=== PATIENT | female | born 1970 ===

== ENCOUNTER 2021-10-22 07:12 | Day surgery (SDC) | payer OTHER ==
[~2021-10-22] VITALS: Ht 162.6 cm; Wt 80.1 kg
[2021-10-22 07:41] VITALS: BP 137/76; PULSE 73; TEMP 97.3
[2021-10-22] MEDS ORDERED: PREVACID 30MG30 M1 PO (07:46)
[2021-10-22] MEDS ORDERED: CYANOCOBAL1000 MCG/1 SQ (07:46)
[2021-10-22 08:45] VITALS: BP 137/76; PULSE 69; TEMP 97
--- NOTE | 2021-10-22 08:52 | NUR ---
0845 - PT arrives from procedure w/ Vandana RN; PT was settled. Verbal report then obtained. PT has warm blankets and non-slip socks on. PT denies pain and nausea. Vitals obtained. PT provided w/ a warm muffin and ice water per request. PT oriented to room and call kern, within reach. Visitor remains present.
[2021-10-22 09:00] VITALS: BP 111/72; PULSE 68
--- NOTE | 2021-10-22 09:01 | NUR ---
0900 - VSS. IV disconnected and PT ambualted to bathroom independently. Then back to bay #8; where she is changing into her personal clothes. Call kern remains within reach if needed.
[2021-10-22 09:15] VITALS: BP 120/65; PULSE 65
--- NOTE | 2021-10-22 09:19 | NUR ---
0915 - VSS. IV discontinued. Catheter tip intact. Pressure bandage applied. No redness or swelling noted. DC instructions and educational material reveiwed with the PT who verbalized understanding and signed the related paperwork. Questions answered to PT satisfaction. PT then dismissed from endo via wheelchair to the PT entrence. PT has DC packet and personal belongings and was transferred into the care of Honey who is present to drive private car. has spoken w/ PT.
== END 2021-10-22 09:20 | disposition home or self-care (01) ==
LOC: SDCO 07:12
DX: Z12.11 Encounter for screening for malignant neoplasm of colon (principal); Z83.71 Family history of colonic polyps
CPT/HCPCS: J2405; J2704; J7030

== ENCOUNTER 2022-01-21 12:20 | Emergency (ER) | payer OTHER ==
[~2022-01-21] VITALS: Ht 162.6 cm; Wt 80.9 kg
[~2022-01-21 12:20] MED LIST: CYANOCOBAL1000 MCG/1 SQ; PREVACID 30MG30 M1 PO
[2022-01-21 12:29] VITALS: TEMP 98.2
[2022-01-21 14:09] VITALS: BP 136/62; PULSE 81
== END 2022-01-21 14:28 | disposition home or self-care (01) ==
LOC: COL.ER 12:20
DX: G43.909 Migraine, unspecified, not intractable, without status migrainosus (principal); Z88.6 Allergy status to analgesic agent; Z88.5 Allergy status to narcotic agent
CPT/HCPCS: J0780; J1200; J1885; J7120